=== PATIENT | male | born 1985 | race Caucasian/White ===

== ENCOUNTER 2017-09-09 20:58 | Emergency (ER) | payer OTHER ==
[~2017-09-09] VITALS: Ht 188 cm; Wt 77.1 kg
--- NOTE | 2017-09-09 21:24 | NUR ---
PT BIB COUNSELOR FROM OUTPATIENT DETOX FOR ETOH INTOXICATION. PT IS DIFFICULT TO AROUSE, BUT AMBULATED FROM WHEELCHAIR TO BED. NO ACTIVE N/V. A&OX1.
[2017-09-09] MEDS ORDERED: ONDANSETRON 4 MG/2 ML VIAL IV ONE (21:30)
[2017-09-09] MEDS ORDERED: IV NORMAL SALINE 1000 ML BAG IV ONE (21:30)
[2017-09-09] MEDS ORDERED: ONDANSETRON 4 MG/2 ML VIAL ONE (21:42)
[2017-09-09 21:45] LABS: BASOPHILS # (AUTO) 0.1 K/uL (0.0-8.0); BASOPHILS % (AUTO) 1.2 % (0.0-2.0); EOSINOPHILS # (AUTO) 0.2 K/uL (0.0-0.7); EOSINOPHILS % (AUTO) 3.4 % (0.0-7.0); HEMATOCRIT 39.1 % (36.7-47.1); HEMOGLOBIN 13.3 g/dL (12.5-16.3); LYMPHOCYTES # (AUTO) 1.3 K/uL (20.0-40.0); LYMPHOCYTES % (AUTO) 18.3 % (20.5-51.5); MEAN CORPUSCULAR HEMOGLOBIN 29.2 uug (23.8-33.4); MEAN CORPUSCULAR HGB CONC 34 g/dL (32.5-36.3); MEAN CORPUSCULAR VOLUME 85.8 fL (73.0-96.2); MONOCYTES # (AUTO) 0.7 K/uL (2.0-10.0); MONOCYTES % (AUTO) 9.4 % (0.0-11.0); NEUTROPHILS # (AUTO) 4.7 K/uL (1.8-8.9); NEUTROPHILS % (AUTO) 67.7 % (38.5-71.5); PLATELET COUNT (AUTO) 235 K/uL (152-348); RED BLOOD CELL COUNT(AUTO) 4.56 MIL/uL (4.06-5.63)
[2017-09-09 21:51] LABS: CARBON DIOXIDE 31 mmol/L (21-32); CHLORIDE 100 mmol/L (98-107); CREATININE 0.8 mg/dL (0.6-1.3); GLUCOSE 134 mg/dL (74-106); POTASSIUM 3.1 mmol/L (3.5-5.1); UREA NITROGEN, BLOOD 7 mg/dL (7-18)
[2017-09-09 21:52] LABS: ETHANOL 375 MG/DL (0-0)
[2017-09-09 21:57] LABS: ACETAMINOPHEN < 2.0 ug/mL (10-30); ALANINE AMINOTRANSFERASE 124 U/L (16-63); ALKALINE PHOSPHATASE 99 U/L (50-136); ASPARTATE AMINOTRANSFERASE 61 U/L (15-37); BILIRUBIN,DIRECT 0.1 mg/dL (0.0-0.2); BILIRUBIN,TOTAL 0.5 mg/dL (0.2-1.0); TOTAL PROTEIN, SERUM 6.4 g/dL (6.4-8.2)
--- NOTE | 2017-09-09 22:10 | NUR ---
PT USING URINAL X1 SBA.
--- NOTE | 2017-09-09 22:15 | NUR ---
PT TAKEN TO CT. NO ACUTE DISTRESS NOTED.
[2017-09-09 22:34] LABS: *AMPHETAMINE, URINE POSITIVE (NEGATIVE); *BARBITURATE, URINE NEGATIVE (NEGATIVE); *CANNABINOID, URINE NEGATIVE (NEGATIVE); *COCCAINE, URINE NEGATIVE (NEGATIVE); *OPIATE, URINE POSITIVE (NEGATIVE); *PHENCYCLIDINE SCREEN,URINE NEGATIVE (NEGATIVE)
[2017-09-09] MEDS ORDERED: IV D5W-0.45% NS +20 KCL 1,000 ML IV ONE (23:02)
--- NOTE | 2017-09-09 23:48 | NUR ---
PT RESTING IN BED W/ EYES CLOSED. BREATHING EVEN AND UNLABORED. NO DISTRESS NOTED AT THIS TIME.
--- NOTE | 2017-09-10 01:03 | NUR ---
PT STANDING AT BEDSIDE URING URINAL INDEPENDENTLY. STEADY GAIT. DENIES DIZINESS. NO DISTRESS NOTED.
--- NOTE | 2017-09-10 02:34 | NUR ---
MULTIPLE CALLS PLACED TO DETOX FACILITY. UNABLE TO SPEAK W/ ANYONE DIRECTLY REGARDING PENDING PT DISCHARGE. LEFT MESSAGE. PENDING RESPONSE.
--- NOTE | 2017-09-10 04:02 | NUR ---
Patient discharged to home in stable conditon. Written and verbal after care instructions given. Patient verbalizes understanding of instructions. IV removed w/ catheter intact. No bleeding noted at site.
[2017-09-10 04:03] VITALS: BP 114/64
== END 2017-09-10 04:04 | disposition home or self-care (01) ==
LOC: ER 20:58
DX: F15.10 Other stimulant abuse, uncomplicated (principal); F10.121 Alcohol abuse with intoxication delirium
CPT/HCPCS: 36415; 70450; 72125; 80307; 85025; 93005; A4663; G0480; G0480-TC; J2405; J3490; J7030